=== PATIENT | female | born 2005 | race Caucasian/White ===

== ENCOUNTER 2024-05-04 17:13 | Emergency (ER) | payer OTHER ==
[2024-05-04 17:40] LABS: BASOPHILS ABSOLUTE AUTO 0.02 10^3/uL (0.00-0.10); BASOPHILS PERCENT AUTO 0.2 % (0.0-1.0); EOSINOPHILS ABSOLUTE AUTO 0.04 10^3/uL (0.10-0.30); EOSINOPHILS PERCENT AUTO 0.5 % (1.0-3.0); HEMATOCRIT 39.7 % (37.0-47.0); HEMOGLOBIN 12.8 g/dL (12.0-16.0); IMMATURE GRAN ABSOLUTE AUTO 0.07 10^3/uL (0.00-0.50); IMMATURE GRAN PERCENT AUTO 0.8 % (0.0-5.0); LYMPHOCYTES ABSOLUTE AUTO 0.87 10^3/uL (1.00-4.00); LYMPHOCYTES PERCENT AUTO 9.9 % (20.0-40.0); MEAN CORPUSCULAR HEMOGLOBIN 26.6 pg (27.0-31.0); MEAN CORPUSCULAR HGB CONC 32.2 g/dL (32.0-36.0); MEAN CORPUSCULAR VOLUME 82.5 fL (82.0-92.0); MEAN PLATELET VOLUME 10.5 fL (7.4-10.4); MONOCYTES ABSOLUTE AUTO 0.21 10^3/uL (0.10-0.80); MONOCYTES PERCENT AUTO 2.4 % (2.0-8.0); NEUTROPHILS ABSOLUTE AUTO 7.59 10^3/uL (2.50-7.00); NEUTROPHILS PERCENT AUTO 86.2 % (50.0-70.0); PLATELET COUNT,PLT 287 10^3/uL (150-400); RED BLOOD CELL COUNT 4.81 10^6/uL (3.80-5.50); RED CELL DISTRIBUTION WIDTH 13.8 % (11.5-14.5)
[2024-05-04 17:55] LABS: ALBUMIN 3.26 g/dL (3.40-5.00); ANION GAP 14.5 mmol/L (5-15); BILIRUBIN TOTAL 0.7 mg/dL (0.2-1.0); CALCIUM 8.8 mg/dL (8.7-10.3); CARBON DIOXIDE,CO2 26.8 mmol/L (21.0-32.0); CREATININE 0.51 mg/dL (0.51-1.17); EST CRCL DRUG DOSING (CG) 159.65 mL/min; POTASSIUM,K 4.3 mmol/L (3.5-5.1); PROTEIN TOTAL,TP 7.6 g/dL (6.4-8.2)
[2024-05-04 18:24] LABS: APPEARANCE,URINE CLEAR (CLEAR); BILIRUBIN,URINE NEGATIVE (NEGATIVE); GLUCOSE,URINE NEGATIVE (NEGATIVE); KETONES,URINE TRACE mg/dL (NEGATIVE); LEUKOCYTE ESTERASE,URINE NEGATIVE (NEGATIVE); NITRITE,URINE NEGATIVE (NEGATIVE); OCCULT BLOOD,URINE SMALL (NEGATIVE); PROTEIN,URINE NEGATIVE (NEGATIVE); UROBILINOGEN,URINE 0.2 E.U./dL (0.2-1.0)
[2024-05-04 18:28] LABS: COLOR,URINE LIGHT YELLOW (YELLOW)
[2024-05-04 18:30] LABS: BACTERIA,URINE RARE /HPF (NONE TO FEW); EPITHELIAL CELLS,URINE RARE /LPF; WBC,URINE 0-5 /HPF (0-5)
[2024-05-04 18:45] LABS: INFLUENZA A NAA NEGATIVE (NEGATIVE); INFLUENZA B NAA NEGATIVE (NEGATIVE); RESPIRATORY SYNCYTIAL VIR NAA NEGATIVE (NEGATIVE)
[2024-05-04 18:46] LABS: CORONAVIRUS COVID-19 NAA NEGATIVE (NEGATIVE)
[2024-05-04] MEDS: Sodium Chloride 0.9% 100 ML IV SCH (18:54)
[2024-05-04] MEDS: Iopamidol 755 Mg/ML 100 ML Bottle IV ONE (18:54)
[2024-05-04] MEDS: Azithromycin 250 MG Tab PO ONE (19:52)
[2024-05-04] MEDS: Codeine/guaiFENesin 10-100 MG/5 ML Syrup 5 ML Cup PO ONE (19:52)
[2024-05-04] MEDS: Benzonatate 100 MG Cap PO ONE (20:06)
[2024-05-04] MEDS: Albuterol/Ipratropium 3.0-0.5 MG/3 ML Neb Soln NEB ONE (20:09)
[2024-05-04] MEDS: methylPREDNISolone Sodium Succinate 125 MG/2 ML SDV IVPUSH ONE (20:12)
[2024-05-04] MEDS: cefTRIAXone 2 GM Vial IVPUSH ONE (20:17)
== END 2024-05-04 20:32 | disposition home or self-care (01) ==
LOC: KA.ED 17:13
DX: J18.9 Pneumonia, unspecified organism (principal); R79.1 Abnormal coagulation profile; Z87.891 Personal history of nicotine dependence; Z79.899 Other long term (current) drug therapy
CPT/HCPCS: 0241U; 36415; 71275; 80053; 81001; 85025; 85379; 94640; 96374; 96375; 99284; 99285-25; A9270-GY; J0696; J2919; J3490; J7620-GY; Q9967